=== PATIENT | female | born 1985 | race Two or more races ===

== ENCOUNTER → 2024-11-25 | Outpatient (CLI) | payer BC, MEDICAID, SELFPAY ==
[2024-11-25 09:47] LABS: Basophils % (Auto) 0 % (0-2.5); Eosinophils # (Auto) 0.1 Thou/mm3 (0.0-0.5); Eosinophils % (Auto) 1 % (0-10); Hematocrit 40.1 % (36.0-46.0); Hemoglobin 12.8 g/dL (12.0-16.0); Immature Granulocytes % (Auto) 0 % (0-0); Immature Granulocytes Auto 0.02 Thou/mm3 (0.00-0.00); Lymphocytes # (Auto) 3.4 Thou/mm3 (1.0-4.8); Lymphocytes % (Auto) 34 % (10-50); Mean Corpuscular HGB Conc 31.9 g/dl (31.0-37.0); Mean Corpuscular Hemoglobin 27.2 pg (25.0-35.0); Mean Corpuscular Volume 85 fL (80-100); Monocytes # (Auto) 0.4 Thou/mm3 (0.0-0.8); Monocytes % (Auto) 4 % (0-12); Neutrophils % (Auto) 60 % (37-80); Nucleated Red Blood Cell % 0 /100 WBC (0); Platelet Count 380 Thou/mm3 (140-440); RDW Standard Deviation 47.4 fL (36.4-46.3); Red Blood Count 4.71 Miln/mm3 (4.00-5.20)
[2024-11-25 09:51] LABS: Sed Rate (ESR) 5 mm/hr (0-20)
[2024-11-25 10:04] LABS: C-Reactive Protein < 0.4 mg/dL (0.0-0.9)
[2024-11-25 10:07] LABS: Alanine Aminotransferase 25 U/L (10-49); Albumin, Serum 4.7 gm/dL (3.5-5.0); Albumin/Globulin Ratio 2.2 (1.2-2.2); Alkaline Phosphatase 98 U/L (46-116); Anion Gap 9 (7-16); Aspartate Amino Transferase 21 U/L (0-34); BUN/Creatinine Ratio 16 Ratio (12-20); Bilirubin,Total 0.5 mg/dL (0.3-1.2); Blood Urea Nitrogen 11 mg/dL (9-23); Calcium 9.5 mg/dL (8.3-10.6); Calcium (Corrected) 9.5 mg/dL (8.5-10.1); Carbon Dioxide 26.8 mMol/L (20.0-31.0); Chloride 105 mMol/L (98-107); Creatinine (Component) 0.7 mg/dL (0.6-1.3); Globulin 2.1 gm/dL (2.3-3.5); Glucose 109 mg/dL (74-106); Osmolality,Calculated 281 (275-295); Potassium 3.5 mMol/L (3.4-5.1); Sodium 141 mMol/L (136-145); Thyroid Stimulating Hormone 1.64 uIU/mL (0.55-4.78); Total Protein 6.8 gm/dL (5.7-8.2); eGFR > 60 See Note
[2024-11-25 10:10] LABS: T4 (Thyroxine) 10.1 mcg/dL (4.5-10.9)
[2024-11-25 10:12] LABS: Follicle Stimulating Hormone 4.62 mIU/mL (See Note); Vitamin B12 > 2000 pg/mL (211-911); Vitamin D 25 Hydroxy Total 20.7 ng/mL (7.3-40.2)
[2024-12-02 06:35] LABS: Estradiol, Ultrasensitive* 113 pg/mL; Prolactin* 10.2 ng/mL; T3,Total* 117 ng/dL (76-181); Testosterone, Free,Dialysis 3.6 pg/mL (0.1-6.4); Testosterone, Total, Dialysis 22 ng/dL (2-45); Thyroglobulin Antibodies* <1 IU/mL (< OR = 1); Thyroid Peroxidase Antibodies* <1 IU/mL (<9)
[2024-12-04 06:28] LABS: Immunoglobulin A 202 mg/dL (47-310); tTG Ab, IgA <1.0 U/mL
== END | disposition home or self-care (01) ==
LOC: COPL 08:26
PROVIDERS: PCP Internal Medicine; Referring Provider Nurse Practitioner Gerontology; Visit Provider Nurse Practitioner Gerontology
DX: R19.7 Diarrhea, unspecified (principal); N95.1 Menopausal and female climacteric states; R68.82 Decreased libido; R23.2 Flushing; N95.2 Postmenopausal atrophic vaginitis
CPT/HCPCS: 36415; 80053; 82306; 82607; 82670; 82784; 83001; 84146; 84402; 84403; 84436; 84443; 84480; 85025; 85652; 86140; 86364; 86376; 86800

== ENCOUNTER → 2024-11-27 | Outpatient (CLI) | payer BC, MEDICAID, SELFPAY ==
[2024-11-27 10:43] LABS: Misc Send Out* See Sep Rpt
== END | disposition home or self-care (01) ==
LOC: SLDO 10:26
PROVIDERS: Referring Provider Nurse Practitioner Gerontology; Visit Provider Nurse Practitioner Gerontology
DX: R19.7 Diarrhea, unspecified (principal)
CPT/HCPCS: 82653; 87177; 87209; 87493

== ENCOUNTER 2025-05-23 16:29 | Emergency (ER) | payer BC, MEDICAID, SELFPAY ==
[2025-05-23 16:30] VITALS: BMI 27.8
[2025-05-23 16:47] VITALS: BP 115/75; PULSE 105; RESP 18; TEMP 37.2; O2SAT 96
--- NOTE | 2025-05-23 17:19 | PD.EDRME ---
Rapid Medical Screening Exam RME Arrival date/time: 05/23/25 16:29 This is a 39-year-old female that comes into the emergency room with complaints of right flank pain for the past few days. Patient states that it feels like pyelo-. Patient states she has had Rodrigo in the past. Patient is also complaining of bodyaches chills nausea poor appetite and pain with urination. Last menstrual period was 12 May 2025 I have greeted and performed a focused initial assessment of this patient. Initial appropriate labs ordered at this time. A comprehensive ED assessment and evaluation of the patient and analysis of all test and completion of medical decision making process will be conducted by additional ED provider. Chief Complaint: Flu Like Symptoms Time Seen by Provider: 05/23/25 16:34 Vital signs: Vital Signs Temperature 98.9 F 05/23/25 16:47 Pulse Rate 105 H 05/23/25 16:47 Respiratory Rate 18 05/23/25 16:47 Blood Pressure 115/75 05/23/25 16:47 Pulse Oximetry (%) 96 05/23/25 16:47 Oxygen Delivery Method Room Air 05/23/25 16:47
[2025-05-23 17:28] LABS: Collection Type, Urine Voided
[2025-05-23 17:49] LABS: HCG Qualitative,Urine Negative
[2025-05-23 17:53] LABS: Bacteria,Urine Rare; Bilirubin,Urine 1+ (Negative); Blood,Urine 2+ (Negative); Clarity,Urine Turbid (Clear/Hazy); Color,Urine Drk-Yellow (Lt Yel-Yel); Culture Indicated,Urine Contaminated; Glucose, Urine Negative (Negative); Ketones,Urine Negative (Negative); Leukocyte Esterase,Urine Positive (Negative); Nitrite,Urine Positive (Negative); PH,Urine 6.5 (5.0-7.0); Protein,Urine 1+ (Neg - Trace); RBC,Urine 65 /hpf (0-3); Specific Gravity,Urine 1.034 (1.001-1.035); Squamous Epithelial Cell,Urine 14 /hpf (0-5); WBC,Urine 215 /hpf (0-5)
--- NOTE | 2025-05-23 18:35 | XR_ITS ---
Examination: CT abdomen with intravenous contrast CT pelvis with intravenous contrast 2-D coronal reconstructions 2-D sagittal reconstructions Date and time of exam:May 23, 2025 2141 hours INDICATIONS: Flank pain onset today CTDI: vol (mGy) 22 DLP: (mGycm) 1170 Technique: Multiple axial sections of the abdomen and pelvis have been obtained. 64 slice high-resolution scanner used. 3 mm axial sections have been obtained, post intravenous injection 60 cc [id number] 2-D sagittal coronal reconstructions Low-dose protocols, adjustment and a KB according to patient's size FINDINGS: no focal liver or splenic lesions No gallstones No pancreatic mass No renal or ureteral calculi, no hydronephrosis Aorta normal size No bowel obstruction 10 mm fat-containing umbilical hernia Normal appendix No bowel obstruction No diverticulitis Anteverted uterus with satisfactory position intrauterine device Bladder intact IMPRESSION: No renal or ureteral calculi, no hydronephrosis Normal appendix No bowel obstruction diverticulitis or free air
--- NOTE | 2025-05-23 18:52 | PC.NURSE ---
CAME TO TRIAGE DESK TO ASK WHO WAS ADMINISTRATIVE ANALYST. INFORMED NOT SURE SINCE TRANSPORT ASSISTANT IN CHANGE OF SHIFT MEETING. ASKED IF TRIAGE NURSE COULD HELP AND PT STATES THEY NEVER DID ANYTHING FOR MY PAIN AND I'M REALLY HURTING. INFORMED PT THAT NURSE WILL LEAVE NOTE FOR PROVIDER ABOUT HER PAIN
[2025-05-23 19:26] LABS: Basophils # (Auto) 0.1 Thou/mm3 (0.0-0.2); Basophils % (Auto) 0 % (0-2.5); Eosinophils % (Auto) 0 % (0-10); Hemoglobin 13.7 g/dL (12.0-16.0); Immature Granulocytes % (Auto) 0 % (0-0); Immature Granulocytes Auto 0.08 Thou/mm3 (0.00-0.00); Lymphocytes # (Auto) 2.6 Thou/mm3 (1.0-4.8); Lymphocytes % (Auto) 14 % (10-50); Mean Corpuscular HGB Conc 34.3 g/dl (31.0-37.0); Mean Corpuscular Hemoglobin 28.1 pg (25.0-35.0); Mean Corpuscular Volume 82 fL (80-100); Monocytes # (Auto) 1.2 Thou/mm3 (0.0-0.8); Monocytes % (Auto) 7 % (0-12); Neutrophils # (Auto) 14.1 Thou/mm3 (1.8-7.7); Neutrophils % (Auto) 78 % (37-80); Nucleated Red Blood Cell % 0 /100 WBC (0); Platelet Count 319 Thou/mm3 (140-440); RDW Standard Deviation 43.3 fL (36.4-46.3); Red Blood Count 4.88 Miln/mm3 (4.00-5.20)
[2025-05-23 19:38] LABS: Alanine Aminotransferase 13 U/L (10-49); Alkaline Phosphatase 94 U/L (46-116); Anion Gap 8 (7-16); Aspartate Amino Transferase 17 U/L (0-34); BUN/Creatinine Ratio 14 Ratio (12-20); Bilirubin,Total 1.2 mg/dL (0.3-1.2); Blood Urea Nitrogen 10 mg/dL (9-23); Carbon Dioxide 23.7 mMol/L (20.0-31.0); Chloride 104 mMol/L (98-107); Creatinine (Component) 0.7 mg/dL (0.6-1.3); Estimated Creatinine Clearance 115.6 mL/min (>60); Globulin 2.5 gm/dL (2.3-3.5); Glucose 114 mg/dL (74-106); Lipase 32 U/L (12-53); Osmolality,Calculated 271 (275-295); Potassium 3.7 mMol/L (3.4-5.1); Sodium 136 mMol/L (136-145); Total Protein 7.5 gm/dL (5.7-8.2); eGFR > 60 See Note
[2025-05-23] MEDS: KETOROLAC INJ 30 MG/ML VIAL IVP (20:25)
--- NOTE | 2025-05-23 20:27 | EDNOTE_ITS ---
ED Abdominal Pain RME/HPI General Chief Complaint: Flu Like Symptoms Stated complaint: MULTIPLE COMPLAINTS x 3 DAYS Time seen by provider: 05/23/25 16:34 Arrival date/time: 05/23/25 16:29 Source: patient, RN notes reviewed and old records reviewed Mode of arrival: ambulatory Limitations: no limitations RME / HPI RME / HPI narrative: 39yof presents to ED for 3-day history of right flank pain and chills. Patient c/o nausea and dysuria. Hx pyelonephritis 5 years ago, current symptoms feel similar. No fever, vomiting or hematuria reported. Patient has taken ibuprofen, tylenol and pyridium at home with some relief. Related Data Previous Rx's ?Medication ?Instructions ?Recorded ibuprofen 600 mg tablet 600 mg PO Q6H PRN pain #30 t abs 05/23/25 ondansetron 4 mg disintegrating 4 mg PO Q6H PRN nausea and 05/23/25 tablet vomiting #10 tabs Allergies Allergy/AdvReac Type Severity Reaction Status Date / Time sulfamethoxazole (From Allergy Severe Anaphylaxis Verified 05/23/25 16:33 Bactrim) trimethoprim (From Bactrim) Allergy Severe Anaphylaxis Verified 05/23/25 16:33 Review of Systems Review of Systems Systems Reviewed: All systems reviewed, normal except as documented Constitutional Constitutional: Reports chills and Denies fever(s) Gastrointestinal Gastrointestinal: Reports nausea and Denies vomiting Genitourinary Genitourinary: Reports dysuria, Reports flank pain and Denies hematuria Past Medical History Past Medical History GENITOURINARY: Positive Genitourinary Disorders (Pyelonephritis) Surgical History OTHER SURGICAL HX: Breast augmentation Social History SMOKING STATUS: Never smoker SUBSTANCE USE: does not use ALCOHOL: Current (Socially) ED Exam General Limitations: Present no limitations General appearance: Present alert and in no apparent distress Head Head exam: Present atraumatic and normocephalic Eye Eye exam: Present normal appearance, PERRL and EOMI ENT ENT exam: Present normal exam and mucous membranes moist Neck Neck exam: Present normal inspection and full ROM Chest Chest inspection: Present normal inspection and symmetric chest wall rise Respiratory Respiratory exam: Present normal lung sounds bilaterally; Absent respiratory distress Cardiovascular Cardiovascular exam: Present regular rate and normal rhythm Abdominal Exam Abdominal exam: Present soft; Absent distention, tenderness, guarding or rebound Extremities Exam Extremities exam: Present normal inspection and full ROM Back Exam Back exam: Present CVA tenderness (R) (mild); Absent CVA tenderness (L) Neurological Exam Neurological exam: Present alert and oriented X3 Psychiatric Psychiatric exam: Present normal affect and normal mood Skin Skin exam: Present warm, dry, intact and normal color Course Quality Measures none Orders Category Date Time Status CT Screening NOW Care 05/23/25 18:[address] abdomen pelvis w con Stat Exams 05/23/25 18:35 Completed CBC Stat Lab 05/23/25 18:59 Completed CMP [Comprehensive Metabolic Panel] Stat Lab 05/23/25 18:59 Completed HCG Qualitative,Urine Stat Lab 05/23/25 17:24 Completed Lipase Stat Lab 05/23/25 18:59 Completed Urinalysis, C/S if Indicated Stat Lab 05/23/25 17:24 Completed Ketorolac Inj [Toradol Inj] Med 05/23/25 19:05 Discontinued 30 mg IVP X1 ONE Sodium Chloride 0.9% 1000 ml [Ns] 1,000 ml Med 05/23/25 20:12 Discontinued IV 999 mls/hr cephALEXin [Keflex] Med 05/23/25 22:39 Discontinued 500 mg PO X1 ONE Vital Signs Vital signs: Vital Signs Temperature 98.9 F 05/23/25 16:47 Pulse Rate 105 H 05/23/25 16:47 Respiratory Rate 18 05/23/25 16:47 Blood Pressure 115/75 05/23/25 16:47 Pulse Oximetry (%) 96 05/23/25 16:47 Oxygen Delivery Method Room Air 05/23/25 16:47 Abdominal Pain MDM MDM Narrative MDM Narrative:: 39yof presents to ED for 3-day history of right flank pain and chills. Patient c/o nausea and dysuria. Hx pyelonephritis 5 years ago, current symptoms feel similar. No fever, vomiting or hematuria reported. Patient has taken ibuprofen, tylenol and pyridium at home with some relief. Patient reassessed. Symptoms improved after meds/IVF administered. ED workup reassuring. Will treat for UTI. Encouraged adequate fluids, symptomatic treatment prn. Stable for dc, RTED precautions given. Patient data External records reviewed:: [facility] previous records (05/09/24 ED visit for [facility]) Clinical information provided by:: patient Social determinants that could affect healthcare access:: other (specify) (poor access to healthcare) Patient has the following chronic illnesses:: none How is presenting disease/condition affected by chronic disease/condition?: no chronic disease Evaluation data The following diagnostics were reviewed and interpreted by me:: lab results and radiology exam(s) Lab and/or radiology exams considered but not ordered:: none Interpretation Summary: cbc 18 UA +leuks, nitrites Medications / Prescriptions Medications or Prescriptions considered but not ordered:: none Medication administrations:: Medication Administration History Discontinued Medications Cephalexin HCl (Cephalexin 250 Mg Capsule) 500 mg PO X1 ONE Stop: 05/23/25 22:40 Last Admin: 05/23/25 23:16 Dose: 500 mg Documented By: Sodium Chloride (Ns) 1,000 mls @ 999 mls/hr IV .Q1H1M ONE Stop: 05/23/25 21:12 Last Infusion: 05/23/25 21:12 Dose: Infused Documented By: Admin: 05/23/25 20:28 Dose: 999 mls/hr Documented By: ANITA Ketorolac Tromethamine (Ketorolac Inj 30 Mg/Ml Vial) 30 mg IVP X1 ONE Stop: 05/23/25 19:06 Last Admin: 05/23/25 20:25 Dose: 30 mg Documented By: ANITA Above medications administered in ED Consultations Consultation(s) initiated? (list below): No Diagnosis Differential diagnosis abdominal pain: other (UTI, pyelonephritis, appendicitis, mesenteric adenitis, kidney stone, renal colic) Most likely diagnosis given after review of the tests above:: UTI Admission Indicated Admission indicated?: not indicated Admission Request Was there a request for admission?: No Disposition Plan Disposition Plan: Discharge Discharge Attestation Discharge Attestation: The patient and all family members were given an opportunity to ask questions and understood the discharge instructions. Discharge instructions specifically effects, indications for sooner follow up or return to the emergency department, and the expected course of current diagnosis. Patient condition: Stable Discharge Plan Plan Patient Disposition: HOME (Self Care) Patient condition on transfer: Stable Prescriptions/Referrals Prescriptions/Med Rec: New ibuprofen 600 mg tablet 600 mg PO Q6H PRN (Reason: pain) Qty: 30 0RF ondansetron 4 mg tablet,disintegrating 4 mg PO Q6H PRN (Reason: nausea and vomiting) Qty: 10 0RF Referrals: Pradeep (PCP)Jeo MD [Primary Care Provider] - In 1 week Problem List Clinical Impression: UTI (urinary tract infection) Patient/Caregiver Discharge Instructions Education Materials: Urinary Tract Infections in Women Print Language: Danish Stand Alone Forms: Andra Award Info., Patient Portal Info Letter PA/STEAM BOX TENDER Supervising Physician PA/STEAM BOX TENDER Supervising Physician: Jossy
[2025-05-23] MEDS: SODIUM CHLORIDE 0.9% 1000 ML 1,000 ML 999 ML IV (20:28)
[2025-05-23] MEDS: cephALEXin 250 MG CAPSULE 500 MG PO (23:16)
== END 2025-05-23 23:22 | disposition home or self-care (01) ==
PROVIDERS: Nurse Practitioner Family; Physician Assistant; Emergency Provider Emergency Medicine; PCP Family Medicine
DX: N39.0 Urinary tract infection, site not specified (principal)
CPT/HCPCS: 36415; 74177; 80053; 81001; 81025; 83690; 85025; 96361; 96374; 99285; A4649; J1885; J7030; Q9967; A9270